=== PATIENT | male | born 1970 | race Caucasian/White ===

== ENCOUNTER 2021-04-12 08:08 | Emergency (ER) | payer OTHER ==
--- NOTE | 2021-04-12 09:29 | EDM.PDOC ---
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 developed fever and myalgias and cough 10d ago, went to [facility] and had a COVID test that was positive 9d ago, took ibuprofen 200 mg 4 tabs and APAP 500 mg 2 tabs every 8 hours that dec'd temp from 102 to 99-100 and also dec'd myalgias now no fever x 3d and myalgias gone altho has soreness in his chest from coughing, particularly upper anterior chest, has also had chronic pain on daily basis at L chest localized between L nipple and sternum, local injection did not help, ibuprofen helps some altho takes it only occasionally, chest CT 4y ago with mild DJD t-spine and no localized lung findings altho did have nonspecific lymphadenopathy pt has been quarantining at home, lives with and 2 children ages 14 & 17, and children with no sxs and tested neg for COVID, 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 [employer] pt does not know any exposure to COVID has had COVID vaccine pt seen in clinic 3d ago by Dr Albarado, CxR done, no labs, given Rx for dexamethason 4 mg/d x 7d, pt took a dose this AM pt reports CxR (not in [facility]) showed small amount of b/l COVID pneumonia R>L cough is now with green sputum x 2d, inc'd sob x 2d pt has been reporting PO and vital signs 2x/d to [facility] in [place], he has had PO 89-90% for past 2d and they requested him to come to ED 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 (see below) Other Treatments 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/09/2021 Bilateral Chest Pain Score (Numeric/FACES): 5 - Related Data Allergies Allergy/AdvReac Type Severity Reaction Status Date / Time No Known Allergies Allergy Verified 02/17/17 09:44 Home Meds: Home Meds Azithromycin 250 mg PO ASDIRECTED #6 tablet 06/04/21 [Rx] Cholecalciferol (Vitamin D3) [Vitamin D] 5,000 unit PO DAILY 04/12/21 [History] Zinc 50 mg PO DAILY 04/12/21 [History] dexAMETHasone [Dexamethasone] 4 mg PO DAILY 04/12/21 [History] valACYclovir HCl [Valacyclovir] 2,000 mg PO BID 04/12/21 [History] Social & Family History - Family History Family Medical History: No Pertinent Family History - Tobacco Use Tobacco Use Status *Q: Never Tobacco User - Caffeine Use Caffeine Use: Reports: Coffee - Recreational Drug Use Recreational Drug Use: No ED ROS GENERAL - Review of Systems Review Of Systems: See Below Constitutional: Reports: Fever, Weakness HEENT: Reports: No Symptoms Respiratory: Reports: Shortness of Breath, Cough, Sputum Cardiovascular: Reports: Chest Pain Endocrine: Reports: No Symptoms GI/Abdominal: Reports: No Symptoms. Denies: Abdominal Pain, Nausea, Vomiting : Reports: No Symptoms Musculoskeletal: Reports: No Symptoms Skin: Reports: No Symptoms Neurological: Reports: No Symptoms Psychiatric: Reports: No Symptoms Hematologic/Lymphatic: Reports: No Symptoms Immunologic: Reports: No Symptoms ED EXAM, GENERAL - Physical Exam Exam: See Below Exam Limited By: No Limitations General Appearance: Alert, WD/WN, Other (mild dyspnea) Eye Exam: Bilateral Eye: Other (mild hyperemia and slight edema of conj b/l) Ears: Normal External Exam, Hearing Grossly Normal Nose: Normal Inspection, Normal Mucosa, No Blood. No: Nasal Swelling, Nasal Drainage, Clear Rhinorrhea Throat/Mouth: Normal Inspection, Normal Lips, Normal Teeth, Normal Gums, Normal Oropharynx, Normal Voice, No Airway Compromise Head: Atraumatic, Normocephalic Neck: Normal Inspection, Supple, Non-Tender, Full Range of Motion. No: Lymphadenopathy (R), Lymphadenopathy (L) Respiratory/Chest: Other (fair AE, no wheeze/rales, talks 6-word sentences, mild dyspnea, no accesory muscles, no purse lips, no retractions, ribs nontender to firm pressure) Cardiovascular: Regular Rate, Rhythm, No Edema, No Murmur GI/Abdominal: Normal Bowel Sounds, Soft, Non-Tender, No Organomegaly, Other (no lymphadeopathy) Back Exam: Normal Inspection, Full Range of Motion, NT Extremities: Normal Inspection, Normal Range of Motion, Non-Tender, No Pedal Edema, Normal Capillary Refill Neurological: Alert, Oriented, CN II-XII Intact, Normal Cognition, No Motor/Sensory Deficits Psychiatric: Normal Affect, Normal Mood Skin Exam: Warm, Dry, Intact, Normal Color, No Rash Lymphatic: No Adenopathy #1 Interpretation EKG Date: 04/12/21 Time: 09:08 Rhythm: NSR [place]: Normal P-Wave: Present QRS: Normal Comparison: NA - No Prior EKG (borderline t-wave changes in II, III, F without comparison) Course - Vital Signs Last Recorded V/S: Last Vital Signs Temp 37.1 C 04/12/21 08:08 Pulse 69 04/12/21 11:01 Resp 20 04/12/21 08:08 BP 139/83 04/12/21 11:01 Pulse Ox 95 04/12/21 11:01 - Orders/Labs/Meds Orders: Active Orders 24 hr Category Date Time Status EKG Documentation Completion [RC] ASDIRECTED Care 04/12/21 09:00 Active Chest Abdomen Pelvis w Cont [CT] Stat Exams 04/12/21 09:08 Ordered EKG 12 Lead [EK] Routine Ther 04/12/21 08:54 Ordered Labs: Laboratory Tests 04/12/21 04/12/21 04/12/21 Range/Units 09:30 09:30 09:30 WBC 11.3 H (3.2-10.1) x10-3/uL RBC 4.11 (3.90-5.90) x10(6)uL Hgb 13.5 (12.9-17.7) g/dL Hct 39.9 (38.3-50.1) % MCV 97.0 (80.8-98.7) fL MCH 32.7 (27.0-33.3) pg MCHC 33.7 (28.7-35.3) g/dL RDW 12.9 (12.4-15.0) % Plt Count 212 (117-477) x10(3)uL MPV 8.2 (6.7-11.0) fL Neut % (Auto) 89.6 H (40.3-71.8) % Lymph % (Auto) 2.8 L (15.8-45.3) % [place] % (Auto) 7.3 (5.5-15.2) % Eos % (Auto) 0.0 L (0.1-6.8) % Baso % (Auto) 0.3 (0.3-3.8) % Neut # (Auto) 10.1 H (1.7-6.9) x10-3/uL Lymph # (Auto) 0.3 L (0.5-4.5) x10-3/uL [place] # (Auto) 0.8 (0.0-1.2) x10-3/uL Eos # (Auto) 0.0 (0.0-0.6) x10-3/uL Baso # (Auto) 0.0 (0.0-0.3) x10-3/uL D-Dimer, Quantitative 0.50 (0.0-0.59) mg/LFEU Sodium 139 (135-145) mmol/L Potassium 3.9 (3.5-5.3) mmol/L Chloride 103 (100-110) mmol/L Carbon Dioxide 29 (21-32) mmol/L BUN 11 (7-18) mg/dL Creatinine 0.9 (0.70-1.30) mg/dL Est Cr Clr Drug Dosing 103.42 mL/min Estimated GFR (MDRD) > 60 (>60) BUN/Creatinine Ratio 12.2 (9-20) Glucose 119 H (80-116) mg/dL Calcium 7.3 L (8.6-10.2) mg/dL Total Bilirubin 0.4 (0.1-1.3) mg/dL AST 33 H (5-25) IU/L ALT 53 H (12-36) U/L Alkaline Phosphatase 61 (56-112) IU/L Troponin I (4.0-60.3) pg/mL C-Reactive Protein (0.5-0.9) mg/dL NT-Pro-B Natriuret Pep (<=125) pg/mL Total Protein 7.1 (6.0-8.0) g/dL Albumin 3.0 L (3.5-5.2) g/dL Globulin 4.1 g/dL Albumin/Globulin Ratio 0.7 Urine Color (YELLOW) Urine Appearance (CLEAR) Urine pH (5.0-6.5) Ur Specific [place] (1.010-1.025) Urine Protein (NEGATIVE) mg/dL Urine Glucose (UA) (NORMAL) mg/dL Urine Ketones (NEGATIVE) mg/dL Urine Occult Blood (NEGATIVE) Urine Nitrite (NEGATIVE) Urine Bilirubin (NEGATIVE) Urine Urobilinogen (NEGATIVE) mg/dL Ur Leukocyte Esterase (NEGATIVE) Urine RBC (0-5) Urine WBC (0-5) Ur Squamous Epith Cells (NS,R,O) 04/12/21 04/12/21 04/12/21 Range/Units 09:30 09:30 09:59 WBC (3.2-10.1) x10-3/uL RBC (3.90-5.90) x10(6)uL Hgb (12.9-17.7) g/dL Hct (38.3-50.1) % MCV (80.8-98.7) fL MCH (27.0-33.3) pg MCHC (28.7-35.3) g/dL RDW (12.4-15.0) % Plt Count (117-477) x10(3)uL MPV (6.7-11.0) fL Neut % (Auto) (40.3-71.8) % Lymph % (Auto) (15.8-45.3) % [place] % (Auto) (5.5-15.2) % Eos % (Auto) (0.1-6.8) % Baso % (Auto) (0.3-3.8) % Neut # (Auto) (1.7-6.9) x10-3/uL Lymph # (Auto) (0.5-4.5) x10-3/uL [place] # (Auto) (0.0-1.2) x10-3/uL Eos # (Auto) (0.0-0.6) x10-3/uL Baso # (Auto) (0.0-0.3) x10-3/uL D-Dimer, Quantitative (0.0-0.59) mg/LFEU Sodium (135-145) mmol/L Potassium (3.5-5.3) mmol/L Chloride (100-110) mmol/L Carbon Dioxide (21-32) mmol/L BUN (7-18) mg/dL Creatinine (0.70-1.30) mg/dL Est Cr Clr Drug Dosing mL/min Estimated GFR (MDRD) (>60) BUN/Creatinine Ratio (9-20) Glucose (80-116) mg/dL Calcium (8.6-10.2) mg/dL Total Bilirubin (0.1-1.3) mg/dL AST (5-25) IU/L ALT (12-36) U/L Alkaline Phosphatase (56-112) IU/L Troponin I 5.4 (4.0-60.3) pg/mL C-Reactive Protein 4.0 H* (0.5-0.9) mg/dL NT-Pro-B Natriuret Pep 88 (<=125) pg/mL Total Protein (6.0-8.0) g/dL Albumin (3.5-5.2) g/dL Globulin g/dL Albumin/Globulin Ratio Urine Color Yellow (YELLOW) Urine Appearance Clear (CLEAR) Urine pH 7.0 H (5.0-6.5) Ur Specific [place] 1.005 L (1.010-1.025) Urine Protein Negative (NEGATIVE) mg/dL Urine Glucose (UA) Normal (NORMAL) mg/dL Urine Ketones Negative (NEGATIVE) mg/dL Urine Occult Blood Negative (NEGATIVE) Urine Nitrite Negative (NEGATIVE) Urine Bilirubin Negative (NEGATIVE) Urine Urobilinogen Normal (NEGATIVE) mg/dL Ur Leukocyte Esterase Negative (NEGATIVE) Urine RBC 0-5 (0-5) Urine WBC 0-5 (0-5) Ur Squamous Epith Cells Occasional (NS,R,O) Meds: Medications Discontinued Medications Generic Name Dose Route Start Last Admin Trade Name Alinq PRN Reason Stop Dose Admin Sodium Chloride 1,000 mls @ 999 mls/hr 04/12/21 09:39 04/12/21 09:45 Normal Saline IV 04/12/21 10:39 999 mls/hr .BOLUS ONE Administration Ceftriaxone Sodium 1 gm/ 50 mls @ 200 mls/hr 04/12/21 10:17 Sodium Chloride IV 04/12/21 10:31 ONETIME ONE Iopamidol 100 ml 04/12/21 11:02 04/12/21 11:33 Iopamidol 755 Mg/Ml 100 Ml Bottle IV 04/12/21 11:03 95 ml . DIRECTED ONE Administration - Re-Assessments/Exams Free Text/Narrative Re-Assessment/Exam: 04/12/21 12:46 tests reviewed with pt and CT chest/abd/pelvis with IV contrast with COVID pneumonia at periphery (ground glass) without definite evidence of bacterial infection (no lobar pneumonia) wbc 11k which may be d/t dexamethason, however prominent left shift with 89% segs mild inc'd LFTs of unclear clinical sig walk test done with Rachael, PO dropped into low 90s, was 93-98% here on RA pt with good clinical evidence for secondary bacterial infection (decreasing O2 at home despite absence of fever and myalgias for 3d, green sputum, inc'd dyspnea, left shift, mild inc'd wbc) given ceftriaxone 1 gm IV here, will continue with [place] pt wants to go back to the office in 3d on Thursday, however advised to wait for clearance from Dr Albarado infectious precautions at home reviewed Departure - Departure Time of Disposition: 12:36 Disposition: Home, Self-Care 01 Condition: Good Clinical Impression: Pneumonia due to COVID-19 virus, Secondary bacterial pneumonia - Discharge Information *PRESCRIPTION DRUG MONITORING PROGRAM REVIEWED*: Not Applicable *COPY OF PRESCRIPTION DRUG MONITORING REPORT IN PATIENT INGRID: Not Applicable Prescriptions: Azithromycin 250 mg PO ASDIRECTED #6 tablet Instructions: Community-Acquired Pneumonia, Adult, COVID-19, COVID-19: Quarantine vs. Isolation - CDC Forms: ED Department Discharge Additional Instructions: Continue dexamethasone. Take ibuprofen and/or acetaminophen for pain as needed. For secondary bacterial infection, take azithromycin 250 mg 2 tabs today, then 1 tab daily for 4 days. No work outside the house until cleared by Dr Albarado to do so. Use oxygen at night, 2 l/min via nasal cannula, for the next week unless you receive different instructions from Dr Albarado. Continue good handwashing and social distancing. Sepsis Event Note (ED) - Evaluation Sepsis Screening Result: No Definite Risk - Focused Exam Vital Signs: Vital Signs Temp Pulse Resp BP Pulse Ox 04/12/21 11:01 69 139/83 95 04/12/21 10:31 65 138/85 95 04/12/21 10:01 64 136/80 96 04/12/21 09:31 68 138/84 95 04/12/21 09:14 72 138/86 94 L 04/12/21 08:08 37.1 C 85 20 135/82 93 L - My Orders Last 24 Hours: My Active Orders 04/12/21 08:54 EKG 12 Lead [EK] Routine 04/12/21 09:00 EKG Documentation Completion [RC] ASDIRECTED 04/12/21 09:08 Chest Abdomen Pelvis w Cont [CT] Stat - Assessment/Plan Last 24 Hours: My Active Orders 04/12/21 08:54 EKG 12 Lead [EK] Routine 04/12/21 09:00 EKG Documentation Completion [RC] ASDIRECTED 04/12/21 09:08 Chest Abdomen Pelvis w Cont [CT] Stat
[2021-04-12] MEDS ORDERED: Sodium Chloride 0.9% 1,000 ML IV ONE (09:39)
[2021-04-12] MEDS ORDERED: cefTRIAXone 1 GM in Sodium Chloride 0.9% 50 ML IV ONE (10:17)
[2021-04-12] MEDS ORDERED: Iopamidol 755 Mg/ML 100 ML Bottle IV ONE (11:02)
--- NOTE | 2021-04-12 14:04 | CT ---
CT CHEST, ABDOMEN AND PELVIS WITH CONTRAST [id number] INDICATION: Diagnosis covid 10 days prior. Green sputum x2 days. Question pneumonia, daily sharp left-sided chest pain, question lymphadenopathy in the abdomen. Spiral 3.75 mm axial sections were obtained through the chest, abdomen, and pelvis with 95 mL Isovue 370 at 2.7 mL/sec with axial, sagittal, and coronal reconstructions in the chest and sagittal and coronal reconstructions in the abdomen 04/12/[address] of the chest from 02/17/2017. Total exam DLP was 958.59 mGy-cm. CT CHEST: Examination of the chest by CT was compared with 02/17/2017 as noted above. There is relatively mild lymphadenopathy. One aortopulmonary window node is enlarged compared with the previous study measuring approximately 16 mm on the current study versus approximately 9.5 mm on the previous study. No other mediastinal mass was identified. The heart appears to be significantly increased in size compared with the previous examination. Minimal pericardial effusion is now seen. The upper abdomen included on this study showed no gross abnormality. There is a new finding of moderately extensive peripheral patchy infiltration becoming most severe in the lower lobes at the lung base and more patchy more superiorly and extending into the upper lung soto more prominently on the left than right--involving all lobes. The appearance is compatible with covid-19 pneumonia. No nodular masses were identified. IMPRESSION: 1. Findings are compatible with covid-19 pneumonia. 2. There appears to be progressive increased size of the heart compared with the previous study with minimal pericardial effusion now seen. Report called to Dr. White [place] [address] ABDOMEN AND PELVIS: The liver, spleen, adrenals, kidneys, pancreas, and retroperitoneum appeared normal with no gross lymphadenopathy. The minimal amount of retroperitoneal lymphadenopathy present is nonspecific. The appendix appeared normal visualized on coronal image 36 and axial images 94 through 98. Urinary bladder was unremarkable. The prostate appeared slightly enlarged measuring 39 x 45 x 46 mm. No additional organomegaly, mass lesions, or free fluid collections were identified in the abdomen or pelvis. No evidence of free air or bowel obstruction was seen. IMPRESSION: 1. No significant appearing lymphadenopathy is noted. 2. Prominent prostate. Report was called to Dr. White at 1208 hours 04/12/2021. [facility]
== END 2021-04-12 13:15 | disposition home or self-care (01) ==
LOC: FB.ED 08:08
DX: U07.1 COVID-19 (principal); J12.82 Pneumonia due to coronavirus disease 2019; J15.9 Unspecified bacterial pneumonia
CPT/HCPCS: 36415; 71260; 74177; 80053; 81001; 83880; 84484; 85025; 85379; 86140; 93005; 96374; 99284-25; J0696; J7030; Q9967

== ENCOUNTER 2022-08-04 07:43 | Day surgery (SDC) | payer OTHER ==
[2022-08-04] MEDS ORDERED: Midazolam 1 MG/ML 2 ML SDV IV ONE (07:44)
[2022-08-04] MEDS ORDERED: Propofol 200 MG/20 ML SDV IV ONE (07:44)
[2022-08-04] MEDS ORDERED: Sodium Chloride 0.9% 10 ML Syringe FLUSH PRN (07:45)
[2022-08-04] MEDS ORDERED: Lactated Ringers 1,000 ML IV SCH (07:45)
== END 2022-08-04 10:00 | disposition home or self-care (01) ==
LOC: FB.SDS 07:43
PROVIDERS: ATTEND Surgery
DX: Z12.11 Encounter for screening for malignant neoplasm of colon (principal); Z79.899 Other long term (current) drug therapy
CPT/HCPCS: 00812-QZ; J2250; J2704; J7120